=== PATIENT | male | born 1955 | race Caucasian/White ===

== ENCOUNTER 2020-05-11 16:48 | Observation (INO) | payer OTHER, MEDICARE ==
[~2020-05-11] VITALS: Ht 167.6 cm; Wt 85.1 kg
--- NOTE | 2020-05-11 17:17 | NUR ---
PT IN HOSPITAL GOWN. PT NEEDING TO VOID RIGHT AWAY. PT GIVEN URINAL TO VOID. BP HIGH, ERP AWARE, ORDERS TO BE PLACED. PT FAMILY AT BEDSIDE. CALL LIGHT WITHIN REACH. PT ON CARIDAC AND VITALS MONITORS.
[2020-05-11] MEDS ORDERED: FENO145T32 PO (17:19)
[2020-05-11] MEDS ORDERED: ONDA4TAB13 SL (17:19)
[2020-05-11] MEDS ORDERED: CITA20TA9 PO (17:19)
[2020-05-11] MEDS ORDERED: ASPI-515 PO (17:19)
[2020-05-11] MEDS ORDERED: TAMS-11 PO (17:19)
[2020-05-11] MEDS ORDERED: LISI-170 PO (17:19)
[2020-05-11] MEDS ORDERED: CHOL10003 PO (17:19)
[2020-05-11] MEDS ORDERED: LABETALOL 5MG/ML, 20ML ONE (17:22)
[2020-05-11] MEDS ORDERED: LABETALOL 5MG/ML, 20ML IVPush ONE (17:30)
[2020-05-11] MEDS ORDERED: MORPHINE SULFATE 4 MG/ML, 1ML IVPush PRN (17:30)
[2020-05-11 17:39] LABS: BASOPHILS % (AUTO) 1 % (0-1); EOSINOPHILS % (AUTO) 1 % (1-7); LYMPHOCYTES % (AUTO) 27 % (22-44); MEAN CORPUSCULAR HEMOGLOBIN 30.8 pg (27.5-34.5); MEAN CORPUSCULAR HGB CONC 33.4 g/dL (33.2-36.2); MEAN PLATELET VOLUME 6.6 fL (7.4-10.4); MONOCYTES % (AUTO) 7 % (2-9); NEUTROPHILS % (AUTO) 65 % (42-75); PLATELET COUNT 288 x10^3/uL (130-400); RED BLOOD COUNT 4.72 x10^6/uL (4.38-5.82)
[2020-05-11 17:45] LABS: ALBUMIN 3.7 g/dL (3.4-5.0); ANION GAP 5 mmol/L (5-15); CHLORIDE 107 mmol/L (98-107)
[2020-05-11 17:47] LABS: MD NO
[2020-05-11 17:51] LABS: ALANINE AMINOTRANSFERASE 45 U/L (12-78); ALKALINE PHOSPHATASE 75 U/L (45-117); BILIRUBIN,TOTAL 0.5 mg/dL (0.2-1.0); CREATININE 0.92 mg/dL (0.7-1.3); TOTAL PROTEIN 7.3 g/dL (6.4-8.2); TROPONIN I < 0.015 ng/mL (0.000-0.045)
--- NOTE | 2020-05-11 18:22 | NUR ---
PT HAS LEFT FOR CTA
[2020-05-11] MEDS ORDERED: OMNIPAQUE 350 MG/ML, 100ML BOTTLE ONE (18:30)
--- NOTE | 2020-05-11 19:02 | NUR ---
report to rosaura nettles.
--- NOTE | 2020-05-11 19:03 | NUR ---
report received from fred nettles.
--- NOTE | 2020-05-11 19:22 | NUR ---
sm[facility] at bedside
[2020-05-11] MEDS ORDERED: NITROGLYCERIN 0.4 MG BOTTLE (25 TABS) SL PRN (19:30)
[2020-05-11] MEDS ORDERED: morphine SULFATE 10 MG/ML, 1ML IV PRN (19:30)
[2020-05-11] MEDS ORDERED: DOCUSATE 100 MG CAPSULE PO PRN (19:30)
[2020-05-11] MEDS ORDERED: LABETALOL 5MG/ML, 20ML IVPush PRN (19:30)
[2020-05-11] MEDS ORDERED: ENALAPRILAT 1.25 MG/ML, 2ML IVPush PRN (19:30)
[2020-05-11 19:57] LABS: CHOL/HDL RATIO 3.2
--- NOTE | 2020-05-11 20:09 | NUR ---
PT GIVEN SANDWHICH AND WATER. UNDERSTANDS NPO ORDERS AT 0000 FOR STRESS TEST TOMORROW.
--- NOTE | 2020-05-11 20:20 | NUR ---
REPORT GIVEN TO YANDEL FIGUEROA
[2020-05-11] MEDS: SODIUM CHLORIDE FLUSH 10ML SYR IVF SCH (21:00)
[2020-05-11] MEDS ORDERED: ACETAMINOPHEN 325 MG TABLET PO PRN (21:30)
[2020-05-11 22:42] VITALS: BP 167/103
[2020-05-12 00:02] LABS: TROPONIN I < 0.015 ng/mL (0.000-0.045)
[2020-05-12 01:50] VITALS: BP 143/82
[2020-05-12 03:30] LABS: ANION GAP 4 mmol/L (5-15); BASOPHILS % (AUTO) 1 % (0-1); CALCIUM 8.8 mg/dL (8.5-10.1); CHLORIDE 110 mmol/L (98-107); CREATININE 0.98 mg/dL (0.7-1.3); EOSINOPHILS % (AUTO) 1 % (1-7); LYMPHOCYTES % (AUTO) 28 % (22-44); MEAN CORPUSCULAR HEMOGLOBIN 30.9 pg (27.5-34.5); MEAN CORPUSCULAR HGB CONC 33.4 g/dL (33.2-36.2); MEAN PLATELET VOLUME 6.8 fL (7.4-10.4); MONOCYTES % (AUTO) 8 % (2-9); NEUTROPHILS % (AUTO) 62 % (42-75); PLATELET COUNT 258 x10^3/uL (130-400); RED BLOOD COUNT 4.48 x10^6/uL (4.38-5.82); RED CELL DISTRIBUTION WIDTH 13.9 % (9.4-14.8)
[2020-05-12 03:33] LABS: MD NO
[2020-05-12 03:37] LABS: TROPONIN I < 0.015 ng/mL (0.000-0.045)
[2020-05-12 08:35] VITALS: BP 165/109
[2020-05-12] MEDS ORDERED: ASPIRIN 81 MG TABLET EC PO SCH (09:00)
[2020-05-12] MEDS ORDERED: LISINOPRIL 20 MG TABLET PO SCH ×2 (09:00)
[2020-05-12] MEDS ORDERED: LABETALOL 5MG/ML, 20ML IVPush PRN (09:00)
[2020-05-12] MEDS ORDERED: FENOFIBRATE 145 MG TABLET PO SCH (09:00)
[2020-05-12] MEDS ORDERED: TAMSULOSIN 0.4 MG CAP.ER.24H PO SCH (09:00)
[2020-05-12] MEDS ORDERED: CITALOPRAM 20 MG TABLET PO SCH (09:00)
[2020-05-12] MEDS: METOCLOPRAMIDE 5 MG/ML, 2ML IVPush PRN ×2 (09:18→15:43)
[2020-05-12] MEDS: DIPHENHYDRAMINE 50 MG/ML, 1ML IVPush PRN ×2 (09:18→15:43)
[2020-05-12] MEDS: SODIUM CHLORIDE FLUSH 10ML SYR IVF SCH (09:19)
[2020-05-12] MEDS ORDERED: REGADENOSON 0.4 MG/5 ML SYRINGE ONE (09:27)
[2020-05-12 13:15] VITALS: BP 139/76
[2020-05-12] MEDS ORDERED: ENALAPRILAT 1.25 MG/ML, 2ML IVPush PRN (13:30)
[2020-05-12] MEDS ORDERED: LISI-170 PO (16:33)
[2020-05-12] MEDS ORDERED: METO10TA82 PO (16:33)
[2020-05-12] MEDS ORDERED: DIPH25CA61 PO (16:33)
== END 2020-05-12 17:00 | disposition home or self-care (01) ==
LOC: ED 18:30 → INTOOBSV 19:23 → EDIP 19:23 → 3WST 20:48 → DCLOUNGE 05-12 16:45
PROVIDERS: ADMIT Family Medicine; ATTEND Internal Medicine
DX: R07.89 Other chest pain (principal); I16.0 Hypertensive urgency; I10 Essential (primary) hypertension; R55 Syncope and collapse; E78.5 Hyperlipidemia, unspecified; N40.0 Benign prostatic hyperplasia without lower urinary tract symptoms; K44.9 Diaphragmatic hernia without obstruction or gangrene; R51.9 Headache, unspecified; F32.9 Major depressive disorder, single episode, unspecified; Z79.82 Long term (current) use of aspirin; Z79.899 Other long term (current) drug therapy
CPT/HCPCS: 36415; 70450; 71045; 71275; 78452; 80048; 80053; 80061; 83880; 84484; 85025; 93005; 93017; 93306; 93880; 96374; 96375; 96376; 99285; A9502; G0378; J1200; J2765; J2785; Q9967